=== PATIENT | male | born 1970 | race Caucasian/White ===

== ENCOUNTER 2020-06-25 03:50 | Emergency (ER) | payer OTHER ==
[~2020-06-25] VITALS: Ht 180.3 cm; Wt 77.1 kg
[~2020-06-25 03:50] MED LIST: BENADRYL ALLE12.5 M1 PO; PREDNISONE 20 M20 M1 PO
[2020-06-25] MEDS ORDERED: NORCO 5-325 TA1 EAC2 PO (04:35)
[2020-06-25 05:15] VITALS: BP 122/68
== END 2020-06-25 05:18 | disposition home or self-care (01) ==
LOC: M.ERS 03:50
DX: S01.01XA Laceration without foreign body of scalp, initial encounter (principal); Y08.89XA Assault by other specified means, initial encounter; Y93.89 Activity, other specified; Y92.89 Other specified places as the place of occurrence of the external cause; Y99.8 Other external cause status

== ENCOUNTER 2020-07-05 14:26 | Emergency (ER) | payer OTHER ==
[~2020-07-05] VITALS: Ht 180.3 cm; Wt 77.1 kg
[~2020-07-05 14:26] MED LIST changes: +NORCO 5-325 TA1 EAC2 PO
[2020-07-05 14:42] VITALS: BP 119/80
== END 2020-07-05 14:59 | disposition home or self-care (01) ==
LOC: M.ERS 14:26
DX: S01.01XD Laceration without foreign body of scalp, subsequent encounter (principal); Z48.02 Encounter for removal of sutures; X58.XXXD Exposure to other specified factors, subsequent encounter